=== PATIENT | male | born 1960 | race Caucasian/White ===

== ENCOUNTER → 2023-11-20 07:17 | Outpatient (REF) | payer OTHER, SELFPAY | LOC: DHVS 07:17 | PROVIDERS: ATTENDING PHYSICIAN Surgery Vascular Surgery; FAMILY PHYSICIAN Internal Medicine; REFERRING PHYSICIAN Surgery | DX: I77.9 Disorder of arteries and arterioles, unspecified (principal); Z09 Encounter for follow-up examination after completed treatment for conditions other than malignant neoplasm; I82.409 Acute embolism and thrombosis of unspecified deep veins of unspecified lower extremity | CPT/HCPCS: 93922; 93925; 93971 ==

== ENCOUNTER → 2023-11-26 09:26 | Outpatient (REF) | payer OTHER, SELFPAY | LOC: RAD 09:26 | PROVIDERS: ATTENDING PHYSICIAN Surgery Vascular Surgery; FAMILY PHYSICIAN Internal Medicine | DX: M79.89 Other specified soft tissue disorders (principal) | CPT/HCPCS: 93971 ==

== ENCOUNTER → 2023-12-02 10:14 | Outpatient (REF) | payer OTHER, SELFPAY | LOC: RAD 10:14 | PROVIDERS: ATTENDING PHYSICIAN Internal Medicine | DX: R10.30 Lower abdominal pain, unspecified (principal) | CPT/HCPCS: 72110; 73522 ==

== ENCOUNTER → 2024-05-06 07:50 | Outpatient (REF) | payer OTHER, SELFPAY | LOC: RAD 07:50 | PROVIDERS: ATTENDING PHYSICIAN Surgery Vascular Surgery; FAMILY PHYSICIAN Internal Medicine | DX: I77.9 Disorder of arteries and arterioles, unspecified (principal) | CPT/HCPCS: 93922; 93925 ==

== ENCOUNTER → 2024-06-01 07:26 | Outpatient (REF) | payer BC, SELFPAY | LOC: MRI 07:26 | PROVIDERS: ATTENDING PHYSICIAN Psychiatry & Neurology Neurology | DX: R41.3 Other amnesia (principal) | CPT/HCPCS: 70553 ==

== ENCOUNTER → 2024-07-05 15:38 | Outpatient (REF) | payer BC, SELFPAY | LOC: HWRCS 15:38 | PROVIDERS: ATTENDING PHYSICIAN Nurse Practitioner Family | DX: R01.1 Cardiac murmur, unspecified (principal) | CPT/HCPCS: 93306 ==

== ENCOUNTER → 2024-08-09 10:47 | Outpatient (REF) | payer BC, SELFPAY ==
[2024-08-09 10:35] LABS: % Basophils 0.8 % (0-2); % Eosinophils 3.3 % (0-6); % Immature Granulocytes 0.2 % (0-0.5); % Lymphocytes 33.2 % (20.5-51.1); % Monocytes 8.3 % (1.7-9.3); % Neutrophils 54.2 % (42.2-75.2); Absolute Basophils 0.1 10^3/uL (0-0.2); Absolute Eosinophils 0.2 10^3/uL (0-0.7); Absolute Monocytes 0.5 10^3/uL (0.1-0.6); Absolute Neutrophils 3.3 10^3/uL (1.4-6.5); Hematocrit 39.9 % (39.0-52.0); Hemoglobin 12.5 g/dL (13.0-18.0); Mean Corp Hgb Conc. 31.3 g/dL (33.0-37.0); Mean Corpuscular Hgb 23.8 pg (27.0-31.0); Nucleated Red Blood Cells % 0 % (-); Platelet Count 200 10^3/uL (130-400); Red Blood Cell Count 5.25 10^6/uL (4.70-6.10); Red Cell Dist. Width 22.7 % (11.5-14.5); White Blood Cell Count 6.1 10^3/uL (4.8-10.8)
== END ==
LOC: OIDL 10:47
PROVIDERS: ATTENDING PHYSICIAN Internal Medicine Hematology & Oncology
DX: I82.411 Acute embolism and thrombosis of right femoral vein (principal); D50.9 Iron deficiency anemia, unspecified; D51.9 Vitamin B12 deficiency anemia, unspecified
CPT/HCPCS: 85025

== ENCOUNTER → 2024-11-18 07:37 | Outpatient (REF) | payer OTHER, SELFPAY | LOC: DHVS 07:37 | PROVIDERS: ATTENDING PHYSICIAN Surgery Vascular Surgery; FAMILY PHYSICIAN Nurse Practitioner Family | DX: I77.9 Disorder of arteries and arterioles, unspecified (principal) | CPT/HCPCS: 93922; 93925 ==

== ENCOUNTER → 2025-05-27 07:30 | Outpatient (REF) | payer OTHER, SELFPAY | LOC: RAD 07:30 | PROVIDERS: ATTENDING PHYSICIAN Registered Nurse; FAMILY PHYSICIAN Nurse Practitioner Family | DX: I77.9 Disorder of arteries and arterioles, unspecified (principal) | CPT/HCPCS: 93922; 93925 ==

== ENCOUNTER → 2025-07-20 09:00 | Outpatient (REF) | payer BC, SELFPAY | LOC: HWRCS 09:00 | PROVIDERS: ATTENDING PHYSICIAN Nurse Practitioner Family | DX: I10 Essential (primary) hypertension (principal); I71.21 Aneurysm of the ascending aorta, without rupture; I34.0 Nonrheumatic mitral (valve) insufficiency; I36.1 Nonrheumatic tricuspid (valve) insufficiency | CPT/HCPCS: 93306 ==

== ENCOUNTER → 2025-07-21 12:31 | Outpatient (REF) | payer BC, SELFPAY | LOC: HWRAD 12:31 | PROVIDERS: ATTENDING PHYSICIAN Nurse Practitioner Family | DX: R29.810 Facial weakness (principal); R06.09 Other forms of dyspnea | CPT/HCPCS: 70450; 71046 ==

== ENCOUNTER → 2025-07-25 13:10 | Outpatient (REF) | payer BC, SELFPAY | LOC: PAVMRI 13:10 | PROVIDERS: ATTENDING PHYSICIAN Nurse Practitioner Family | DX: R29.810 Facial weakness (principal) | CPT/HCPCS: 70553; A9575 ==

== ENCOUNTER → 2025-07-28 06:34 | Outpatient (REF) | payer BC, SELFPAY | LOC: RAD 06:34 | PROVIDERS: ATTENDING PHYSICIAN Surgery Vascular Surgery; FAMILY PHYSICIAN Nurse Practitioner Family | DX: R29.810 Facial weakness (principal) | CPT/HCPCS: 93880 ==

== ENCOUNTER → 2025-08-02 16:11 | Outpatient (REF) | payer BC, SELFPAY ==
[2025-08-02 16:56] LABS: Blood Urea Nitrogen 15 mg/dl (9-20); Calcium 9.4 mg/dl (8.4-10.2); Carbon Dioxide 29 mmol/L (22-30); Chloride 106 mmol/L (98-107); Glucose 97 mg/dl (70-99); Potassium 4.3 mmol/L (3.5-5.1); Sodium 137 mmol/L (135-145); eGFR > 60.00
== END ==
LOC: REG 16:11
PROVIDERS: ATTENDING PHYSICIAN Nurse Practitioner Family
DX: I10 Essential (primary) hypertension (principal)
CPT/HCPCS: 36415; 80048

== ENCOUNTER → 2025-08-03 07:27 | Outpatient (REF) | payer BC, SELFPAY | LOC: RAD 07:27 | PROVIDERS: ATTENDING PHYSICIAN Nurse Practitioner Family | DX: R93.89 Abnormal findings on diagnostic imaging of other specified body structures (principal); J98.59 Other diseases of mediastinum, not elsewhere classified | CPT/HCPCS: 71260; Q9967 ==

== ENCOUNTER → 2025-08-22 08:46 | Outpatient (REF) | payer BC, SELFPAY | LOC: HWRAD 08:46 | PROVIDERS: ATTENDING PHYSICIAN Nurse Practitioner Family | DX: E04.2 Nontoxic multinodular goiter (principal) | CPT/HCPCS: 76536 ==